=== PATIENT | male | born 1995 | race Two or more races ===

== ENCOUNTER 2019-04-17 12:54 | Emergency (ER) | payer SELFPAY ==
[~2019-04-17] VITALS: Ht 170.2 cm; Wt 62.7 kg
[2019-04-17 13:03] VITALS: BP 148/99
[2019-04-17] MEDS ORDERED: IBUPROFEN 600 MG TABLET PO ONE (13:30)
[2019-04-17] MEDS ORDERED: IBUPROFEN 200 MG TABLET ONE (13:37)
--- NOTE | 2019-04-17 13:42 | NUR ---
pt refusing xray
--- NOTE | 2019-04-17 13:57 | NUR ---
pt would like xray now, radiology notified
== END 2019-04-17 15:06 | disposition home or self-care (01) ==
LOC: ED 15:00
DX: S43.401A Unspecified sprain of right shoulder joint, initial encounter (principal); S40.011A Contusion of right shoulder, initial encounter; F17.200 Nicotine dependence, unspecified, uncomplicated; V43.52XA Car driver injured in collision with other type car in traffic accident, initial encounter; Y93.I9 Activity, other involving external motion; Y92.488 Other paved roadways as the place of occurrence of the external cause; Y99.8 Other external cause status
CPT/HCPCS: 99283